=== PATIENT | female | born 1945 | race Caucasian/White ===

== ENCOUNTER 2017-12-16 10:26 | Inpatient (IN) | payer BC, OTHER ==
--- NOTE | 2017-12-16 10:37 | PDOC ---
Attending Attestation - Medical Decision Making 12/16/17 12:[address] Emmanuel. Case discussed with Dr. Emmanuel. <Malka Cunha - Last Filed: 12/16/17 12:33> - Resident Resident Name: Josefina Bustillos - HPI HPI: 12/16/17 11:44 Pt presents to the ED complaining of L sided facial droop and slurred speech that began three days ago. History of fall that began concurrently with these symptoms--unclear which came first. On exam, patient has clear L sided droop that involves her lower face only and slurred speech. CVA vs subdural vs other space occupying lesion. Will check stat CT head, labs and EKG and admit to medicine unless patient has intracranial bleed. - Physicial Exam PE: 12/18/17 09:18 Agree with resident exam. PAtient is alert and oriented and in no acute distress but has slurred speech and L sided facial droop. Otherwise neurologically intact. - Medical Decision Making 12/18/17 10:02 Pt presents to the ED complaining of l sided facial droop and slurred speech that started three days ago. Also reports fall. Concern for CVA, less likely intracranial bleed or other intracranial lesions. Labs and Ct head are negative. Will admit to medicine for CVA work up. <Alicia Lovett - Last Filed: 12/18/17 10:13>
[2017-12-16 10:54] LABS: BASO % 1.1 % (0-2.0); EOS % 1.8 % (0-4.5); HEMOGLOBIN 15.7 GM/dL (10.7-15.3); LYMPH % 22.1 % (8-40); MCH 30.4 pg (25.7-33.7); MCHC 32.7 g/dl (32.0-36.0); MEAN PLT VOLUME 7.5 fl (7.5-11.1); MONO % 7.6 % (3.8-10.2); NEUT % 67.4 % (42.8-82.8); PLATELET COUNT 285 K/MM3 (134-434); RBC 5.16 M/mm3 (3.60-5.2); RDW 13.6 % (11.6-15.6); WHITE BLOOD COUNT 7.7 K/mm3 (4.0-10.0)
[2017-12-16 11:10] LABS: INR 1.05 (0.83-1.09); PROTHROMBIN TIME (PATIENT) 12.4 SEC (9.7-13.0)
--- NOTE | 2017-12-16 11:18 | PDOC ---
History of Present Illness - General Chief Complaint: CVA/TIA Stated Complaint: FALL Time Seen by Provider: 12/16/17 10:35 - History of Present Illness Initial Comments: 12/16/17 11:18 72 year old history of HTN and HLD fell on Tuesday on all 4s after getting off bed and going to couch. per notes patient slurring words and with R sided facial droop pt standing after shower L knee buckled under her, denies muscle weakness did not fall, no head trauma held onto the wall called alert necklace for emergency patient takes ASA. does not take other anti-coagulants. Patient admits to some SOB, no chest pain, no abdominal pain. no other extremity injury NIH Stroke Scale - Last Known Well Date/Time & Onset Date Last Known Well: 12/13/17 Time Last Known Well: 06:00 - Initial Evaluation Level of consciousness: Alert Ask patient the month and their age: Answers both correctly Ask patient to open & close eyes; make fist and let go: Obeys both correctly Best gaze (horizontal eye movement): Normal Visual field testing: No visual field loss Facial paresis (Show teeth/raise eyebrows/close eyes tight): Minor paralysis ( flattened nasolabial fold, asymmetry on smiling) Motor Function: Left Arm: Normal Motor Function: Right Arm: Normal (extends arm 90 (or 45) degrees for 10 seconds without drift Motor Function: Left Leg: Normal (extends leg 30 degrees for 5 seconds without drift) Motor Function: Right Leg: Normal (extends leg 30 degrees for 5 seconds without drift) Limb Ataxia: No ataxia Best language (Describe picture, name items, read sentences): No Aphasia Dysarthria (read several words): Mild to moderate slurring of words Extinction and Inattention: No abnormality Past History - Past Medical History Allergies/Adverse Reactions: Allergies Allergy/AdvReac Type Severity Reaction Status Date / Time No Known Allergies Allergy Verified 12/16/17 10:31 Home Medications: Ambulatory Orders Aspirin [Aspirin EC] 81 mg PO DAILY 12/16/17 Atenolol [Tenormin -] 50 mg PO HS 12/16/17 Ibuprofen [Motrin -] 600 mg PO TID PRN 12/16/17 Irbesartan 300 mg PO DAILY 12/16/17 Loratadine 10 mg PO HS 12/16/17 Pravastatin Sodium 20 mg PO HS 12/16/17 Cancer: Yes (rt breast) COPD: No HTN: Yes Hypercholesterolemia: Yes - Surgical History Appendectomy: Yes - Suicide/Smoking/Psychosocial Hx Smoking History: Never smoked Information on smoking cessation initiated: No Hx Alcohol Use: No Drug/Substance Use Hx: No Substance Use Type: None *Physical Exam - Vital Signs Last Vital Signs Temp Pulse Resp BP Pulse Ox 98.0 F 68 18 159/85 96 12/16/17 10:31 12/16/17 10:31 12/16/17 10:31 12/16/17 10:31 12/16/17 10:31 - Physical Exam Comments: 12/16/17 11:28 AxO3 slurring some words L sided facial droop notes no asymmetry on eyebrow raise PERRLA, EOMI, no nystagmus CN5 intact L knee bruising and abrasian no anterior ot posterior drawer findigns no medial or lateral ligament laxity FROM of all extremities ED Treatment Course - LABORATORY CBC & Chemistry Diagram: 12/16/17 10:40 12/16/17 10:40 - ADDITIONAL ORDERS Additional order review: Laboratory Results 12/16/17 12/16/17 10:40 10:40 PT with INR 12.40 INR 1.05 Blood Type Cancelled Antibody Screen Cancelled 12/16/17 10:40 RBC 5.16 MCV 93.0 MCHC 32.7 RDW 13.6 MPV 7.5 Neutrophils % 67.4 Lymphocytes % 22.1 Monocytes % 7.6 Eosinophils % 1.8 Basophils % 1.1 - RADIOLOGY Radiology Studies Ordered: Category Date Time Status HEAD CT (STROKE) [CT] Stat CT Scan 12/16/17 10:39 Completed CXRPORT [CHEST X-RAY PORTABLE*] [RAD] Stat Radiology 12/16/17 10:55 Ordered Medical Decision Making - Medical Decision Making 12/16/17 11:47 CT: unremarkable w/o bleed. *DC/Admit/Observation/Transfer Diagnosis at time of Disposition: CVA (cerebral vascular accident) - Discharge Dispostion Condition at time of disposition: Stable Decision to Admit order: Yes - Referrals - Patient Instructions - Post Discharge Activity
[2017-12-16 11:33] LABS: ALBUMIN 3.6 g/dl (3.4-5.0); ALK PHOS 95 U/L (45-117); ANION GAP 8 MMOL/L (8-16); BILIRUBIN,TOTAL 1.1 mg/dL (0.2-1); BLOOD UREA NITROGEN 10 mg/dL (7-18); CHLORIDE 105 mmol/L (98-107); CHOLESTEROL 177 mg/dL (50-200); CO2 27 mmol/L (21-32); CREATININE 0.6 mg/dL (0.55-1.3); GLUCOSE,RANDOM 98 mg/dL (74-106); HDL CHOLESTEROL 45 mg/dL (40-60); POTASSIUM 4.6 mmol/L (3.5-5.1); SGOT/AST 49 U/L (15-37); SGPT/ALT 42 U/L (13-61); SODIUM 139 mmol/L (136-145); TOT PROT 7.4 g/dl (6.4-8.2); TRIGLYCERIDES 176 mg/dL (0-150)
[2017-12-16] MEDS: SODIUM CHLORIDE 1,000 ML IV SCH (11:45)
[2017-12-16 11:56] LABS: URINE APPEARANCE CLEAR; URINE BILIRUBIN NEGATIVE (<2.0 mg/dL); URINE COLOR STRAW; URINE GLUCOSE (UA) NEGATIVE (NEGATIVE); URINE KETONE NEGATIVE (NEGATIVE); URINE LEUK ESTERASE NEGATIVE (NEGATIVE); URINE NITRITE NEGATIVE (NEGATIVE); URINE PROTEIN NEGATIVE (NEGATIVE); URINE UROBILINOGEN NEGATIVE mg/dL (0.2-1.0)
[2017-12-16] MEDS ORDERED: ATORVASTATIN CA 80 MG TABLET (FP) PO ONE (12:37)
--- NOTE | 2017-12-16 12:37 | HP ---
Admitting History and Physical - Admission Chief Complaint: Left sided weakness with slurred speech History of Present Illness: 72 yrs old F with H/O Obesity, HTN, Dyslipedenmia, on Cruise trip to [place] , visiting [place] as a part of travelling arrnagement, present to ED with Left sided weakness , slurred speech and facial asymmetry, patient say on Tuesday , she felt weak on Left knee and fell down since Tuesday feels Left sided weakness some slurred speech and dribling of water from Left angle of mouth but able to ambulate, today morning she noticed worsening weakness of Left LE partial due to Left knee pain and swelling after fall came to Ed for evaluation , patient denies any haed trauma, double vision, haed ache, chest pain, Plapitation, abadominal pain, back pain or Neck pain, no cage in mental status in the Ed CT head shows no acute changes. History Source: Patient - Past Medical History Cardiovascular: Yes: HTN, Hyperlipdemia Gastrointestinal: Yes: Cancer (Ca Breasrt s/p resection) ...: No Musculoskeletal: Yes: Osteoarthritis - Past Surgical History Additional Past Surgical History: Rt Breast Surgery and Rt rotator cuff with screw - Smoking History Smoking history: Never smoked - Alcohol/Substance Use Hx Alcohol Use: No - Social History Usual Living Arrangement: Yes: With Spouse History of Recent Travel: Yes (On Cruise) Home Medications - Allergies Allergies/Adverse Reactions: Allergies Allergy/AdvReac Type Severity Reaction Status Date / Time No Known Allergies Allergy Verified 12/16/17 10:31 - Home Medications Home Medications: Ambulatory Orders Aspirin [Aspirin EC] 81 mg PO DAILY 12/16/17 Atenolol [Tenormin -] 50 mg PO HS 12/16/17 Ibuprofen [Motrin -] 600 mg PO TID PRN 12/16/17 Irbesartan 300 mg PO DAILY 12/16/17 Loratadine 10 mg PO HS 12/16/17 Pravastatin Sodium 20 mg PO HS 12/16/17 Family Disease History - Family Disease History Family Disease History: Heart Disease: Father (at 54) Review of Systems - Review of Systems Constitutional: denies: Chills, Diaphoresis, Fever, Lethargy Eyes: denies: Blind Spots, Blurred Vision, Double Vision, Photophobia HENT: reports: Difficult Swallowing Neck: denies: Decreased ROM, Lumps, Pain on Movement Cardiovascular: denies: Chest Pain, Edema, Palpitations Respiratory: denies: Cough, Exercise Intolerance Gastrointestinal: denies: Abdominal Pain, Bloating Genitourinary: denies: Burning, Discharge, Dysuria Musculoskeletal: reports: Back Pain (Left Knee Hematoma) Endocrine: denies: Excessive Sweating, Flushing Hematology/Lymphatic: denies: Easily Bruised, Excessive Bleeding Pain Intensity: 4 Physical Examination Vital Signs: Vital Signs Temperature 98.1 F 12/16/17 10:39 Pulse Rate 60 12/16/17 10:39 Respiratory Rate 18 12/16/17 10:39 Blood Pressure 152/74 12/16/17 10:39 O2 Sat by Pulse Oximetry (%) 97 12/16/17 11:18 Elderly F C/O Left Knee Pian HEENT: Left Facial Droop, EOMI NECK: No JVD, No Bruit, CHEST: CTA B/L CVS; S1S2 R no m/g/r ABD: Obese non tender Bs + EXT: Left Knee Hematoma, swelling and Tenderness SLED MAKER: Aox3 Speech Slurred Crnial N; Left Facial ? Sensory; Intact Motor; Rt $+ Left $ Reflexes in determintae Cerebellar not tested. Labs: CBC, BMP 12/16/17 10:40 12/16/17 10:40 CBC,CMP WBC 7.7 K/mm3 (4.0-10.0) 12/16/17 10:40 RBC 5.16 M/mm3 (3.60-5.2) 12/16/17 10:40 Hgb 15.7 GM/dL (10.7-15.3) H 12/16/17 10:40 Hct 48.0 % (32.4-45.2) H 12/16/17 10:40 MCV 93.0 fl (80-96) 12/16/17 10:40 MCH 30.4 pg (25.7-33.7) 12/16/17 10:40 MCHC 32.7 g/dl (32.0-36.0) 12/16/17 10:40 RDW 13.6 % (11.6-15.6) 12/16/17 10:40 Plt Count 285 K/MM3 (134-434) 12/16/17 10:40 MPV 7.5 fl (7.5-11.1) 12/16/17 10:40 Absolute Neuts (auto) 5.2 K/mm3 (1.5-8.0) 12/16/17 10:40 Neutrophils % 67.4 % (42.8-82.8) 12/16/17 10:40 Lymphocytes % 22.1 % (8-40) 12/16/17 10:40 Monocytes % 7.6 % (3.8-10.2) 12/16/17 10:40 Eosinophils % 1.8 % (0-4.5) 12/16/17 10:40 Basophils % 1.1 % (0-2.0) 12/16/17 10:40 Nucleated RBC % 0 % (0-0) 12/16/17 10:40 Sodium 139 mmol/L (136-145) 12/16/17 10:40 Potassium 4.6 mmol/L (3.5-5.1) 12/16/17 10:40 Chloride 105 mmol/L (98-107) 12/16/17 10:40 Carbon Dioxide 27 mmol/L (21-32) 12/16/17 10:40 Anion Gap 8 MMOL/L (8-16) 12/16/17 10:40 BUN 10 mg/dL (7-18) 12/16/17 10:40 Creatinine 0.6 mg/dL (0.55-1.3) 12/16/17 10:40 Creat Clearance w eGFR > 60 (>60) 12/16/17 10:40 Random Glucose 98 mg/dL (74-106) 12/16/17 10:40 Calcium 9.0 mg/dL (8.5-10.1) 12/16/17 10:40 Total Bilirubin 1.1 mg/dL (0.2-1) H 12/16/17 10:40 AST 49 U/L (15-37) H 12/16/17 10:40 ALT 42 U/L (13-61) 12/16/17 10:40 Alkaline Phosphatase 95 U/L (45-117) 12/16/17 10:40 Creatine Kinase 148 IU/L (26-192) 12/16/17 10:40 Troponin I < 0.02 ng/ml (0.00-0.05) 12/16/17 10:40 Total Protein 7.4 g/dl (6.4-8.2) 12/16/17 10:40 Albumin 3.6 g/dl (3.4-5.0) 12/16/17 10:40 Triglycerides 176 mg/dL (0-150) H 12/16/17 10:40 Cholesterol 177 mg/dL (50-200) 12/16/17 10:40 Total LDL Cholesterol 123 mg/dL (5-100) H 12/16/17 10:40 HDL Cholesterol 45 mg/dL (40-60) 12/16/17 10:40 Imaging - Results Chest X-ray: Report Reviewed (Normal) X-ray: Report Reviewed (Left Knee no fracture) Cat Scan: Report Reviewed (No acute chnages) EKG: Report Reviewed ([address] chnages) Problem List - Problems (1) CVA (cerebral vascular accident) Assessment/Plan: Left sided weakness with facial and sppech involvement, 3 days old not a candidate for TPA,Stroke w/u , Telemonitoring, ECHO, Neurology consult , Neuro check, , MRI MRA Neck, Carotid Doppler , speech and swallow and PT evaluation, LDL 124 add Lipitor 80 mg once cont ASA switch to Lipitor 40 mg asha, Optimize BP control. Code(s): I63.9 - CEREBRAL INFARCTION, UNSPECIFIED (2) HTN (hypertension) Assessment/Plan: Cont all home meds 3 days old lesion no indication for permissive HTN Code(s): I10 - ESSENTIAL (PRIMARY) HYPERTENSION (3) Dyslipidemia (high LDL; low HDL) Assessment/Plan: Lipitor 80 stat switch to Lipitor 40 mg on [place] Code(s): E78.5 - HYPERLIPIDEMIA, UNSPECIFIED (4) Obesity (BMI 30-39.9) Assessment/Plan: Nutrition consult Code(s): E66.9 - OBESITY, UNSPECIFIED (5) Left knee injury Assessment/Plan: No fracture cold compresses pain control. Code(s): S89.92XA - UNSPECIFIED INJURY OF LEFT LOWER LEG, INITIAL ENCOUNTER
--- NOTE | 2017-12-16 13:37 | CONSULT ---
Admitting History and Physical - Primary Care Physician PCP: Larry Frausto - Admission History of Present Illness: Pt presents to the ED complaining of L sided facial droop and slurred speech that began three [place] ago [place] cruise [place].Pt reports coughing while drinking, CT head (-) acute infarct History Source: Patient, Medical Record - Smoking History Smoking history: Never smoked - Alcohol/Substance Use Hx Alcohol Use: No History - Admission Reason For Visit: FALL - Diagnostics X-ray: Report Reviewed CT Scan: Report Reviewed MRI: Pending - General Mental Status: Alert and Oriented, Awake and Alert, Able to Follow Commands Attention: Intact Ability to Follow Directions: Good Head/Neck Control: Good - Hearing Hearing: Functional Speech Evaluation - Communication Primary Language: MAORI Communication: Yes: Dysarthria Oral Expression Ability: Yes: Mild Impairment - Speech Production Dysarthria: Yes: Flaccid Able to Make Needs Known: Yes: Mildly Impaired Intelligibility: Yes: Mildly Impaired - Speech Characteristics Voice Loudness: Normal, Mildly Soft/Quiet Voice Pitch: Yes: Normal Speech Clarity: < 100% Nasal Resonance: Normal Articulation: Yes: Imprecise Voice, Other Observations: Yes: Progressively Weak Voice - Language/Auditory Comprehension Follows: Yes: 1 Stage Simple Commands - Language/Verbal Expression Able to Respond to Simple Queries: Yes: WNL Able to Communicate Wants and Needs: Yes: WNL Functional Communication Status: Yes: WNL Attention: Yes: Intact - Swallow Evaluation/Bedside Assessment Current Nutritional Intake: NPO (Failed Dysphagia screen) Oral Secretions: Yes: WFL Facial Symmetry at Rest: Facial Droop Left Facial Symmetry on Retraction: Facial Droop Left Sensation: Reduced Left Against Resistance Opening: Normal Against Resistance Closing: Normal Pucker Lips: Droops Left Smile: Droops Left Lingual Movement: Deviates Left Lingual Movement Strgth Against Opposition: Reduced Laryngeal Movement: Labored,delay initiation Bolus Size: WFL Labial Seal: Impaired Left Chewing: Impaired Oral Prep Time: Increased A-P Transit: WFL Timing of Swallow: Delayed Coughing/Throat Clear: Yes (thin) Recommendations - Speech Evaluation, Impression/Plan Impression: Dysarthria/Dysphagia/Left facial weakness, tongue deviates to left. - Disposition Discharge to: Rehabilitation Center - Dysphagia Impressions/Plan Swallowing Skills: Impaired Dysphagia Impressions: Mild Impairment *Silent aspiration: cannot be R/O at bedside Dysphagia Treatment Plan: Small Bites, Chin Tuck/Down, Trial Feedings, Facilitative Feeding, Safe Rate, 1/2 tsp. at a time, Elevate HOB during feed Recommendations: Modified Barium Swallow (if cough, congestion,throat clear) - Recommendations Diet Consistency: Dysphagia Whole (chopped meat.) Medication Administration: Crushed with applesauce Liquids: [place] Thick
--- NOTE | 2017-12-16 14:02 | CON.NEURO ---
Consult Consult Specialty:: Jasbir Referred by:: ER - History of Present Illness History of Present Illness: 72-year-old right-handed female patient with present medical history significant for coronary artery disease, osteoarthritis, hypertension, allergy, increased cholesterol presents today to the emergency room [facility] with a chief complaint of slurred speech and numbness for 3 days. Stroke protocol was initiated although the patient was not a candidate for TPA due to last well-known over 72 hours. In the emergency room patient with no complaint of headache or blurry vision or double vision or chest pain. Patient was stabilized. patient was evaluated in the emergency room patient according third started on Tuesday night when she started feeling left arm and leg numbness with facial droop with mild slurring of speech no chest pain or palpitation. I interviewed the patient in the emergency room she was stable with no cardiac arrhythmia CAT scan of the head revealed no evidence of acute pathology surprisingly. NIH stroke scale was noted patient was not a candidate for thrombolysis - History Source History Provided By: Patient Limitations to Obtaining History: No Limitations - Alcohol/Substance Use Hx Alcohol Use: No - Smoking History Smoking history: Never smoked Home Medications - Allergies Allergies/Adverse Reactions: Allergies Allergy/AdvReac Type Severity Reaction Status Date / Time No Known Allergies Allergy Verified 12/16/17 10:31 - Home Medications Home Medications: Ambulatory Orders Aspirin [Aspirin EC] 81 mg PO DAILY 12/16/17 Atenolol [Tenormin -] 50 mg PO HS 12/16/17 Ibuprofen [Motrin -] 600 mg PO TID PRN 12/16/17 Irbesartan 300 mg PO DAILY 12/16/17 Loratadine 10 mg PO HS 12/16/17 Pravastatin Sodium 20 mg PO HS 12/16/17 Family Disease History - Family Disease History Family History: Unable to Obtain Review of Systems - Review of Systems Constitutional: reports: No Symptoms Eyes: reports: No Symptoms Physical Exam-Neuro Vital Signs: Vital Signs Temperature 98.1 F 12/16/17 10:39 Pulse Rate 60 12/16/17 10:39 Respiratory Rate 18 12/16/17 10:39 Blood Pressure 152/74 12/16/17 10:39 O2 Sat by Pulse Oximetry (%) 97 12/16/17 11:18 Constitutional: Yes: Well Nourished Neck: Yes: WNL Cardiovascular: Yes: WNL Labs: CBC, BMP 10/12/18 10:40 12/16/17 10:40 INR, PTT INR 1.05 (0.83-1.09) 12/16/17 10:40 - Neuro Exam Level Of Consciousness: Yes: Oriented to Person, Oriented to Place, Oriented to Time Eyes: Yes: PERRLA Speech: WNL Dominant Hand: Right Cranial Nerves II-XII Intact: No (left facial droop central) Gag: Present DTR's: 1+ Left Bicep, 1+ Right Bicep, 1+ Left Brachioradialis, 1+ Right Brachioradialis Response to light touch: Abnormal Response to pain prick: Abnormal Response to temperature: Abnormal Motor Strength: 2/5: Left Arm, 3/5: Right Arm, Left Leg, Right Leg Gait: Deferred NIH Stroke Scale - Last Known Well Date/Time & Onset Date Last Known Well: 12/12/17 Time Last Known Well: 00:00 - Initial Evaluation Level of consciousness: Alert Ask patient the month and their age: Answers both correctly Ask patient to open & close eyes; make fist and let go: Obeys both correctly Best gaze (horizontal eye movement): Normal Visual field testing: No visual field loss Facial paresis (Show teeth/raise eyebrows/close eyes tight): Partial paralysis ( total or near paralysis of lower face) Motor Function: Left Arm: Drift Motor Function: Right Arm: Normal (extends arm 90 (or 45) degrees for 10 seconds without drift Motor Function: Left Leg: Some effort against gravity Motor Function: Right Leg: Normal (extends leg 30 degrees for 5 seconds without drift) Limb Ataxia: No ataxia Sensory(Use pinprick test arms,legs,trunk,face/side to side): Mild to moderate decrease in sensation Best language (Describe picture, name items, read sentences): No Aphasia Dysarthria (read several words): Mild to moderate slurring of words Extinction and Inattention: No abnormality - Total Score NIH Stroke Scale Score: 7 Imaging - Results Cat Scan: Image Reviewed Problem List - Problems (1) CVA (cerebral vascular accident) Assessment/Plan: 72-year-old woman with multiple medical problem presents with over 3 day history of left face arm and leg weakness. Gross neurological examination with evidence of left hemiparesis with mild sensory loss with mild dysarthria. NIH stroke scale is 7. Neurological differential diagnoses rule out right MCA stroke. 1. Neurochecks every 2 hours. 2. X-ray of the right shoulder. 3. Stop the aspirin. 4. Aggrenox twice daily. 5. Weight loss was advised. 6. Stroke education. 7. Tight blood pressure control. 8. Admit to monitored setting. 9. MRI of the brain with no contrast. 11. SCDs. 10. Physical therapy. 12. Speech and swallow evaluation. Patient will need to go to acute rehabilitation. Case was discussed with the . Estimated length of stay 3 days. Chances for good recovery is good. Thank you very much for referring patients patient for neurological consultation. Code(s): I63.9 - CEREBRAL INFARCTION, UNSPECIFIED
[2017-12-16] MEDS ORDERED: IBUPROFEN 600 MG TABLET (FP) PO PRN (14:47)
[2017-12-16] MEDS ORDERED: ATORVASTATIN CA 80 MG TABLET (FP) ONE (15:20)
--- NOTE | 2017-12-16 15:47 | ECHO ---
Name: CALVIN FARIAS Exam:Adult Echocardiogram Study Date: 12/16/2017 02:31 PM Age: 72 yrs Reason For Study: SYNCOPE Height: 65 in Weight: 220 lb BSA: 2.1 m2 MMode/2D Measurements & Calculations IVSd: 0.97 cm Ao root diam: 2.8 cm LVIDd: 3.7 cm LA dimension: 3.9 cm LVIDs: 2.9 cm LVPWd: 1.3 cm EDV(Teich): 59.5 ml LVOT diam: 1.9 cm ESV(Teich): 30.9 ml RV S Hardik: 14.9 cm/sec Doppler Measurements & Calculations MV E max hardik: 71.3 cm/sec MV A max hardik: 100.4 cm/sec MV dec slope: 137.8 cm/sec2 MV E/A: 0.71 MV dec time: 0.16 sec Med Peak E' Hardik: 10.1 cm/sec Med E/e': 7.0 Lat Peak E' Hardik: 6.7 cm/sec Lat E/e': 10.6 Left Ventricle Left ventricular systolic function is grossly normal. The transmitral spectral Doppler flow pattern i s suggestive of impaired LV relaxation. Right Ventricle The right ventricle is normal in size and function. Atria The left atrium is mildly dilated. Mitral Valve There is mild mitral annular calcification. There is no mitral valve stenosis. There is trace to mild mitral regurgitation. Tricuspid Valve The tricuspid valve is normal in structure and function. Aortic Valve The aortic valve opens well. No hemodynamically significant valvular aortic stenosis. No aortic regur gitation is present. Pulmonic Valve The pulmonic valve is not well seen, but is grossly normal. There is no pulmonic valvular stenosis. Great Vessels The aortic root is normal size. Pericardium/Pleura There is pericardial thickening and/or a small pericardial effusion. Interpretation Summary Left ventricular systolic function is grossly normal. The right ventricle is normal in size and function. The left atrium is mildly dilated. There is mild mitral annular calcification. There is trace to mild mitral regurgitation. The transmitral spectral Doppler flow pattern is suggestive of impaired LV relaxation. The aortic root is normal size. There is pericardial thickening and/or a small pericardial effusion. MD Nikita Briceño 12/16/2017 03:46 PM
[2017-12-16] MEDS ORDERED: ASPIRIN/DIPYRIDAMOLE 25 MG/200 MG CAPSULE (FP) ONE (22:18)
[2017-12-16] MEDS ORDERED: ATENOLOL 25 MG TABLET (FP) ONE (22:18)
[2017-12-16] MEDS ORDERED: LORATADINE 10 MG TABLET ONE (22:19)
[2017-12-16] MEDS: ASPIRIN/DIPYRIDAMOLE 25 MG/200 MG CAPSULE (FP) PO SCH (22:32)
[2017-12-16] MEDS: LORATADINE 10 MG TABLET PO SCH (22:32)
[2017-12-16] MEDS: ATENOLOL 50 MG TABLET (FP) PO SCH (22:32)
[2017-12-17 07:05] LABS: BASO % 0.5 % (0-2.0); EOS % 1.4 % (0-4.5); HEMATOCRIT 44.2 % (32.4-45.2); HEMOGLOBIN 14.8 GM/dL (10.7-15.3); LYMPH % 16.7 % (8-40); MCH 30.6 pg (25.7-33.7); MCHC 33.5 g/dl (32.0-36.0); MEAN CELL VOLUME 91.5 fl (80-96); MEAN PLT VOLUME 7.8 fl (7.5-11.1); MONO % 8.1 % (3.8-10.2); NEUT % 73.3 % (42.8-82.8); PLATELET COUNT 271 K/MM3 (134-434); RBC 4.83 M/mm3 (3.60-5.2); RDW 13.5 % (11.6-15.6); WHITE BLOOD COUNT 9.7 K/mm3 (4.0-10.0)
--- NOTE | 2017-12-17 08:30 | PN ---
Progress Note, Physician Chief Complaint: No new complaints, evaluated by Neurology, PT and speech and swallow - Current Medication List Current Medications: Active Medications Active Medications Atenolol (Tenormin -) 50 mg PO HS [facility] Last Admin: 12/16/17 22:32 Dose: 50 mg Atorvastatin Calcium (Lipitor -) 40 mg PO HS [facility] Dipyridamole/Aspirin (Aggrenox -) 1 combo PO BID [facility] Last Admin: 12/17/17 09:51 Dose: 1 combo Sodium Chloride (Normal Saline -) 1,000 mls @ 42 mls/hr IV ASDIR [facility] Last Admin: 12/16/17 11:45 Dose: 42 mls/hr Ibuprofen (Motrin -) 600 mg PO TID PRN PRN Reason: PAIN Loratadine (Claritin -) 10 mg PO HS [facility] Last Admin: 12/16/17 22:32 Dose: 10 mg Losartan Potassium (Cozaar -) 100 mg PO DAILY [facility] Last Admin: 12/17/17 09:51 Dose: 100 mg - Objective Vital Signs: Vital Signs Temperature 97.8 F 12/17/17 03:52 Pulse Rate 68 12/17/17 03:52 Respiratory Rate 20 12/17/17 03:52 Blood Pressure 142/74 12/17/17 03:52 O2 Sat by Pulse Oximetry (%) 100 12/16/17 23:09 Elderly F C/O Left Knee Pian HEENT: Left Facial Droop, EOMI NECK: No JVD, No Bruit, CHEST: CTA B/L CVS; S1S2 R no m/g/r ABD: Obese non tender Bs + EXT: Left Knee Hematoma, swelling and Tenderness FINAL OPERATIONS TECHNICIAN: Aox3 Speech Slurred Crnial N; Left Facial ? Sensory; Intact Motor; Rt $+ Left $ Reflexes in determintae Cerebellar not tested. Labs: CBC, BMP 12/17/17 06:20 INR, PTT INR 1.05 (0.83-1.09) 12/16/17 10:40 Problem List - Problems (1) CVA (cerebral vascular accident) Assessment/Plan: Left sided weakness with facial and sppech involvement, 3 days , MRI shows Rt M2 MCA infarct, cont aggrenox, lipitor 40 mg, BP control, PT and speech and swallow recommendations. f/u neurology recommendations. Code(s): I63.9 - CEREBRAL INFARCTION, UNSPECIFIED (2) HTN (hypertension) Assessment/Plan: Cont all home meds 3 days old lesion no indication for permissive HTN Code(s): I10 - ESSENTIAL (PRIMARY) HYPERTENSION (3) Dyslipidemia (high LDL; low HDL) Assessment/Plan: Lipitor 40 mg on [place] Code(s): E78.5 - HYPERLIPIDEMIA, UNSPECIFIED (4) Obesity (BMI 30-39.9) Assessment/Plan: Nutrition consult Code(s): E66.9 - OBESITY, UNSPECIFIED (5) Left knee injury Assessment/Plan: No fracture cold compresses pain control. Code(s): S89.92XA - UNSPECIFIED INJURY OF LEFT LOWER LEG, INITIAL ENCOUNTER
[2017-12-17 08:59] LABS: ALBUMIN 3.3 g/dl (3.4-5.0); ALK PHOS 92 U/L (45-117); ANION GAP 10 MMOL/L (8-16); BILIRUBIN,TOTAL 1.3 mg/dL (0.2-1); BLOOD UREA NITROGEN 11 mg/dL (7-18); CALCIUM 8.2 mg/dL (8.5-10.1); CHLORIDE 106 mmol/L (98-107); CO2 27 mmol/L (21-32); CREATININE 0.5 mg/dL (0.55-1.3); GLUCOSE,RANDOM 99 mg/dL (74-106); POTASSIUM 3.5 mmol/L (3.5-5.1); SGOT/AST 27 U/L (15-37); SGPT/ALT 35 U/L (13-61); SODIUM 142 mmol/L (136-145); TOT PROT 6.4 g/dl (6.4-8.2)
[2017-12-17] MEDS: LOSARTAN POTASSIUM 50 MG TABLET (FP) PO SCH (09:51)
[2017-12-17] MEDS: ASPIRIN/DIPYRIDAMOLE 25 MG/200 MG CAPSULE (FP) PO SCH ×2 (09:51→21:47)
[2017-12-17] MEDS ORDERED: ASPIRIN COATED 81 MG TABLET.EC PO SCH (10:00)
--- NOTE | 2017-12-17 10:31 | EKG ---
Test Reason : Blood Pressure : / mmHG Vent. Rate : 064 BPM Atrial Rate : 064 BPM P-R Int : 162 ms QRS Dur : 086 ms QT Int : 436 ms P-R-T Axes : 000 051 000 degrees QTc Int : 449 ms NORMAL SINUS RHYTHM NONSPECIFIC ST ABNORMALITY ABNORMAL ECG NO PREVIOUS ECGS AVAILABLE Confirmed by MINO DE JESUS MD ([id number]) on 12/17/2017 10:31:07 AM Referred By: Confirmed By:MINO DE JESUS MD
--- NOTE | 2017-12-17 11:33 | PN ---
Progress Note, Physician History of Present Illness: events noted Chart reviewed Alert awake Seen on Tele MRI confirmed M2 Right MCA CVA hemodynamically stable seen on Thalomid 3 with the . No report of any cardiac arrhythmia. - Current Medication List Current Medications: Active Medications Atenolol (Tenormin -) 50 mg PO HS [facility] Last Admin: 12/16/17 22:32 Dose: 50 mg Dipyridamole/Aspirin (Aggrenox -) 1 combo PO BID [facility] Last Admin: 12/17/17 09:51 Dose: 1 combo Sodium Chloride (Normal Saline -) 1,000 mls @ 42 mls/hr IV ASDIR [facility] Last Admin: 12/16/17 11:45 Dose: 42 mls/hr Ibuprofen (Motrin -) 600 mg PO TID PRN PRN Reason: PAIN Loratadine (Claritin -) 10 mg PO HS [facility] Last Admin: 12/16/17 22:32 Dose: 10 mg Losartan Potassium (Cozaar -) 100 mg PO DAILY [facility] Last Admin: 12/17/17 09:51 Dose: 100 mg - Objective Vital Signs: Vital Signs Temperature 98.1 F 12/17/17 08:51 Pulse Rate 74 12/17/17 08:51 Respiratory Rate 16 12/17/17 08:52 Blood Pressure 143/71 12/17/17 08:51 O2 Sat by Pulse Oximetry (%) 95 12/17/17 08:52 Constitutional: Yes: Well Nourished Eyes: Yes: WNL Neurological: Yes: Alert, Oriented, Babinski positive, Cran Nerves II-XII Intact , Loss of Sensation ...Motor Strength: LUE (4), LLE (3) Labs: CBC, BMP 12/17/17 06:20 12/17/17 06:20 INR, PTT INR 1.05 (0.83-1.09) 12/16/17 10:40 Problem List - Problems (1) CVA (cerebral vascular accident) Assessment/Plan: 1. Aggrenox 2. statin 3. Acute Rehab 4. weight loss 5. stroke education 6. change diet to pure Code(s): I63.9 - CEREBRAL INFARCTION, UNSPECIFIED
[2017-12-17] MEDS: ALPRAZolam 0.25 MG TABLET PO PRN ×2 (12:46→21:48)
[2017-12-17] MEDS: LORATADINE 10 MG TABLET PO SCH (21:47)
[2017-12-17] MEDS: ATORVASTATIN CA 40 MG TABLET (FP) PO SCH (21:47)
[2017-12-17] MEDS: ATENOLOL 50 MG TABLET (FP) PO SCH (21:47)
[2017-12-17] MEDS: SODIUM CHLORIDE 1,000 ML IV SCH (21:48)
[2017-12-18] MEDS ORDERED: ONDANSETRON 4 MG/2 ML VIAL IVPUSH ONE (02:02)
[2017-12-18 07:21] LABS: BASO % 0.5 % (0-2.0); EOS % 1.5 % (0-4.5); HEMATOCRIT 43.7 % (32.4-45.2); HEMOGLOBIN 14.7 GM/dL (10.7-15.3); LYMPH % 22.8 % (8-40); MCHC 33.6 g/dl (32.0-36.0); MEAN CELL VOLUME 92.1 fl (80-96); MEAN PLT VOLUME 7.7 fl (7.5-11.1); MONO % 7.5 % (3.8-10.2); NEUT % 67.7 % (42.8-82.8); PLATELET COUNT 256 K/MM3 (134-434); RBC 4.75 M/mm3 (3.60-5.2); RDW 13.6 % (11.6-15.6); WHITE BLOOD COUNT 9.4 K/mm3 (4.0-10.0)
[2017-12-18 08:04] LABS: ANION GAP 7 MMOL/L (8-16); BLOOD UREA NITROGEN 11 mg/dL (7-18); CALCIUM 8.5 mg/dL (8.5-10.1); CHLORIDE 107 mmol/L (98-107); CO2 28 mmol/L (21-32); CREATININE 0.4 mg/dL (0.55-1.3); GLUCOSE,RANDOM 102 mg/dL (74-106); POTASSIUM 3.6 mmol/L (3.5-5.1); SODIUM 142 mmol/L (136-145)
[2017-12-18] MEDS: LOSARTAN POTASSIUM 50 MG TABLET (FP) PO SCH (09:55)
[2017-12-18] MEDS: ASPIRIN/DIPYRIDAMOLE 25 MG/200 MG CAPSULE (FP) PO SCH ×2 (09:55→21:32)
--- NOTE | 2017-12-18 10:20 | PN ---
Progress Note, Physician Chief Complaint: No new complaints, evaluated by Neurology, PT and speech and swallow - Current Medication List Current Medications: Active Medications Alprazolam (Xanax -) 0.5 mg PO Q8H PRN PRN Reason: ANXIETY Last Admin: 12/17/17 21:48 Dose: 0.5 mg Atenolol (Tenormin -) 50 mg PO HS [facility] Last Admin: 12/17/17 21:47 Dose: 50 mg Atorvastatin Calcium (Lipitor -) 40 mg PO HS [facility] Last Admin: 12/17/17 21:47 Dose: 40 mg Dipyridamole/Aspirin (Aggrenox -) 1 combo PO BID [facility] Last Admin: 12/18/17 09:55 Dose: 1 combo Sodium Chloride (Normal Saline -) 1,000 mls @ 42 mls/hr IV ASDIR [facility] Last Admin: 12/17/17 21:48 Dose: 42 mls/hr Ibuprofen (Motrin -) 600 mg PO TID PRN PRN Reason: PAIN Last Admin: 12/18/17 00:42 Dose: 600 mg Loratadine (Claritin -) 10 mg PO HS [facility] Last Admin: 12/17/17 21:47 Dose: 10 mg Losartan Potassium (Cozaar -) 100 mg PO DAILY [facility] Last Admin: 12/18/17 09:55 Dose: 100 mg - Objective Vital Signs: Vital Signs Temperature 97.8 F 12/18/17 10:09 Pulse Rate 68 12/18/17 10:09 Respiratory Rate 18 12/18/17 10:09 Blood Pressure 135/58 L 12/18/17 10:09 O2 Sat by Pulse Oximetry (%) 100 12/17/17 21:00 Elderly F C/O Left Knee Pian HEENT: Left Facial Droop, EOMI NECK: No JVD, No Bruit, CHEST: CTA B/L CVS; S1S2 R no m/g/r ABD: Obese non tender Bs + EXT: Left Knee Hematoma, swelling and Tenderness [employer]: Aox3, slurred speech, Left sided weakness. Labs: CBC, BMP 12/18/17 05:17 12/18/17 05:17 INR, PTT INR 1.05 (0.83-1.09) 12/16/17 10:40 - ....Imaging MRI: Report Reviewed (Rt Basal Ganglion Acute/Subacute infarct) Problem List - Problems (1) CVA (cerebral vascular accident) Assessment/Plan: Rt Basal Ganglion acute to sub acute infarct, optimize BP control, aggrenox, Lipitor 40 mg F/U OT PT evaluation. Code(s): I63.9 - CEREBRAL INFARCTION, UNSPECIFIED (2) HTN (hypertension) Assessment/Plan: BP at target cont current meds Code(s): I10 - ESSENTIAL (PRIMARY) HYPERTENSION (3) Dyslipidemia (high LDL; low HDL) Assessment/Plan: Lipitor 40 mg on [place] Code(s): E78.5 - HYPERLIPIDEMIA, UNSPECIFIED (4) Obesity (BMI 30-39.9) Assessment/Plan: Nutrition consult Code(s): E66.9 - OBESITY, UNSPECIFIED (5) Left knee injury Assessment/Plan: No fracture cold compresses pain control. Code(s): S89.92XA - UNSPECIFIED INJURY OF LEFT LOWER LEG, INITIAL ENCOUNTER
[2017-12-18] MEDS ORDERED: DOCUSATE SODIUM 100 MG CAPSULE (FP) PO ONE (12:15)
[2017-12-18 14:29] VITALS: BMI 39.4
[2017-12-18] MEDS: SODIUM CHLORIDE 1,000 ML IV SCH (21:30)
[2017-12-18] MEDS: ATENOLOL 50 MG TABLET (FP) PO SCH (21:32)
[2017-12-18] MEDS: LORATADINE 10 MG TABLET PO SCH (21:32)
[2017-12-18] MEDS: ATORVASTATIN CA 40 MG TABLET (FP) PO SCH (21:32)
[2017-12-18] MEDS: ALPRAZolam 0.25 MG TABLET PO PRN (21:40)
--- NOTE | 2017-12-18 21:52 | PN ---
Progress Note, Physician History of Present Illness: events noted and chart reviewed Alert awake at [facility] bed side No seizure or cardiac arrhythmia - Current Medication List Current Medications: Active Medications Acetaminophen (Tylenol -) 650 mg PO Q6H PRN PRN Reason: PAIN Alprazolam (Xanax -) 0.5 mg PO Q8H PRN PRN Reason: ANXIETY Last Admin: 12/18/17 21:40 Dose: 0.5 mg Atenolol (Tenormin -) 50 mg PO HS [facility] Last Admin: 12/18/17 21:32 Dose: 50 mg Atorvastatin Calcium (Lipitor -) 40 mg PO HS [facility] Last Admin: 12/18/17 21:32 Dose: 40 mg Dipyridamole/Aspirin (Aggrenox -) 1 combo PO BID [facility] Last Admin: 12/18/17 21:32 Dose: 1 combo Sodium Chloride (Normal Saline -) 1,000 mls @ 42 mls/hr IV ASDIR [facility] Last Admin: 12/18/17 21:30 Dose: 42 mls/hr Ibuprofen (Motrin -) 600 mg PO TID PRN PRN Reason: PAIN Last Admin: 12/18/17 00:42 Dose: 600 mg Loratadine (Claritin -) 10 mg PO HS [facility] Last Admin: 12/18/17 21:32 Dose: 10 mg Losartan Potassium (Cozaar -) 100 mg PO DAILY [facility] Last Admin: 12/18/17 09:55 Dose: 100 mg Polyethylene Glycol (Miralax (For Daily Use) -) 17 gm PO DAILY [facility] - Objective Vital Signs: Vital Signs Temperature 97.8 F 12/18/17 20:22 Pulse Rate 73 12/18/17 20:22 Respiratory Rate 20 12/18/17 21:00 Blood Pressure 140/76 12/18/17 20:22 O2 Sat by Pulse Oximetry (%) 96 12/18/17 21:00 Constitutional: Yes: Well Nourished Eyes: Yes: WNL ...Motor Strength: LUE (3), LLE (4) Labs: CBC, BMP 12/18/17 05:17 12/18/17 05:17 INR, PTT INR 1.05 (0.83-1.09) 12/16/17 10:40 Problem List - Problems (1) CVA (cerebral vascular accident) Assessment/Plan: 1. Neuro checks 2. Needs acute rehab 3. does not want to go to [place] until finish treatment 4. PT 5. DVT prophylaxis Stroke education nd weight loss Code(s): I63.9 - CEREBRAL INFARCTION, UNSPECIFIED
[2017-12-19 06:52] LABS: BASO % 0.7 % (0-2.0); EOS % 2.8 % (0-4.5); HEMATOCRIT 44.9 % (32.4-45.2); LYMPH % 21.9 % (8-40); MCH 30.6 pg (25.7-33.7); MCHC 33.3 g/dl (32.0-36.0); MEAN CELL VOLUME 91.8 fl (80-96); MEAN PLT VOLUME 7.8 fl (7.5-11.1); MONO % 8.7 % (3.8-10.2); NEUT % 65.9 % (42.8-82.8); PLATELET COUNT 262 K/MM3 (134-434); RDW 13.8 % (11.6-15.6); WHITE BLOOD COUNT 8.9 K/mm3 (4.0-10.0)
[2017-12-19 07:21] LABS: ANION GAP 7 MMOL/L (8-16); BLOOD UREA NITROGEN 10 mg/dL (7-18); CALCIUM 8.9 mg/dL (8.5-10.1); CHLORIDE 110 mmol/L (98-107); CO2 26 mmol/L (21-32); CREATININE 0.4 mg/dL (0.55-1.3); GLUCOSE,RANDOM 94 mg/dL (74-106); POTASSIUM 3.5 mmol/L (3.5-5.1); SODIUM 144 mmol/L (136-145)
[2017-12-19] MEDS: ACETAMINOPHEN 325 MG TABLET (FP) PO PRN ×3 (07:30→21:47)
[2017-12-19] MEDS: LOSARTAN POTASSIUM 50 MG TABLET (FP) PO SCH (09:47)
[2017-12-19] MEDS: ASPIRIN/DIPYRIDAMOLE 25 MG/200 MG CAPSULE (FP) PO SCH ×2 (09:47→21:35)
[2017-12-19] MEDS: POLYETHYLENE GLYCOL 3350 119 GM BTL PO SCH (09:47)
--- NOTE | 2017-12-19 09:53 | PN ---
Physical Exam: SUBJECTIVE: Patient seen and examined oob to recliner chair. Complaining of chronic back pain. OBJECTIVE: Vital Signs Period Temp Pulse Resp BP Sys/Ortega Pulse Ox Last 24 Hr 97.6 F-98.8 F 62-76 18-20 135-153/58-96 96 GENERAL: The patient is awake, alert, and fully oriented, in no acute distress. NEUROLOGICAL: Left facial droop; left arm and left leg 1/5 motor; speech is slow , mildly dysarthric HEAD: Normal with no signs of trauma. LUNGS: Breath sounds equal, clear to auscultation bilaterally, no wheezes, no crackles, no accessory muscle use. HEART: Regular rate and rhythm, S1, S2 ABDOMEN: Soft, nontender, nondistended EXTREMITIES: 2+ pulses, warm, well-perfused, no edema. PSYCH: Depressed affect Laboratory Results - last 24 hr 12/19/17 12/19/17 05:30 05:30 WBC 8.9 RBC 4.90 Hgb 15.0 Hct 44.9 MCV 91.8 MCH 30.6 MCHC 33.3 RDW 13.8 Plt Count 262 MPV 7.8 Absolute Neuts (auto) 5.8 Neutrophils % 65.9 Lymphocytes % 21.9 Monocytes % 8.7 Eosinophils % 2.8 D Basophils % 0.7 Nucleated RBC % 0 Sodium 144 Potassium 3.5 Chloride 110 H Carbon Dioxide 26 Anion Gap 7 L BUN 10 Creatinine 0.4 L Creat Clearance w eGFR > 60 Random Glucose 94 Calcium 8.9 Active Medications Generic Name Dose Route Start Last Admin Trade Name Freq PRN Reason Stop Dose Admin Acetaminophen 650 mg 12/18/17 15:10 12/19/17 07:30 Tylenol - PO 650 mg Q6H PRN Administration PAIN Alprazolam 0.5 mg 12/17/17 12:02 12/18/17 21:40 Xanax - PO 0.5 mg Q8H PRN Administration ANXIETY Atenolol 50 mg 12/16/17 22:00 12/18/17 21:32 Tenormin - PO 50 mg HS MARTIN Administration Atorvastatin Calcium 40 mg 12/17/17 22:00 12/18/17 21:32 Lipitor - PO 40 mg HS MARTIN Administration Dipyridamole/Aspirin 1 combo 12/16/17 22:00 10/15/18 09:47 Aggrenox - PO 1 combo BID MARTIN Administration Sodium Chloride 1,000 mls @ 42 mls/hr 12/16/17 10:45 12/18/17 21:30 Normal Saline - IV 42 mls/hr ASDIR MARTIN Administration Ibuprofen 600 mg 12/16/17 14:47 12/18/17 00:42 Motrin - PO 600 mg TID PRN Administration PAIN Loratadine 10 mg 12/16/17 22:00 12/18/17 21:32 Claritin - PO 10 mg HS MARTIN Administration Losartan Potassium 100 mg 12/17/17 10:00 12/19/17 09:47 Cozaar - PO 100 mg DAILY MARTIN Administration Polyethylene Glycol 17 gm 12/19/17 10:00 12/19/17 09:47 Miralax (For Daily Use) - PO 17 gm DAILY MARTIN Administration ASSESSMENT/PLAN 72 year-old female with a PMH significant for HTN, HLD, CAD, and breast cancer s /p right breast resection, admitted for CVA. CVA --12/16 MRI brain: acute/subacute nonhemorrhagic small vessel infarct right basal ganglia --left hemiplegia --BP at goal range --continue Aggrenox --stop Motrin --stop alprazolam, does not tolerate causes nightmares Hypertension --BP stable and in goal range --continue losartan, atenolol Hyperlipidemia --continue Lipitor Breast cancer --stable Nausea --episode of nausea while eating dinner --Zofran PRN FEN Fluids: PO intake adequate Electrolytes: replete as indicated Nutrition: dysphagia whole, nectar thick DVT prophylaxis: not on chemical prophylaxis; TEDs Dispo: continues to require inpatient care. Awaiting rehab placement. Full code. Visit type - Emergency Visit Emergency Visit: Yes ED Registration Date: 12/19/17 Care time: The patient presented to the Emergency Department on the above date and was hospitalized for further evaluation of their emergent condition. - New Patient This patient is new to me today: Yes Date on this admission: 12/19/17 - Critical Care Critical Care patient: No
--- NOTE | 2017-12-19 11:56 | PN ---
Progress Note, BINDERY CHIEF - Note Progress Note: MRI confirmed M2 Right MCA CVA Selected Entries 12/18/17 12/18/17 12/18/17 02:00 10:09 14:00 Breakfast 25% Lunch 0 Supper Temperature 97.7 F 97.8 F 97.6 F 12/18/17 12/18/17 12/18/17 17:00 19:46 22:00 Breakfast Lunch Supper 50% Temperature 98.8 F 97.8 F 12/19/17 12/19/17 12/19/17 02:00 06:00 10:00 Breakfast Lunch Supper Temperature 97.8 F 97.6 F 98.4 F Laboratory Tests 12/19/17 05:30 WBC 8.9 Pt is tolerating Dys whole diet/nectar thick liquid diet. When reassessed, she has a responsive cough with thin liquid intermittently. She reports intermittent appetite and nausea. Tongue is coated. REC: good mouth care TID. r/o thrush after mouth care. Oral motor/swallowing exercises and speech drills given for self practice b/n sessions. Educated pt and on speaking slowly and clearly, exaggerating pronunciation. Excellent candidate for acute rehab placement.
[2017-12-19] MEDS: traMADol HCL 50 MG TABLET PO PRN (17:26)
[2017-12-19] MEDS ORDERED: ONDANSETRON 4 MG/2 ML VIAL IVPUSH PRN (17:54)
[2017-12-19] MEDS ORDERED: ONDANSETRON 4 MG/2 ML VIAL ONE (17:56)
[2017-12-19] MEDS: ATORVASTATIN CA 40 MG TABLET (FP) PO SCH (21:35)
[2017-12-19] MEDS: LORATADINE 10 MG TABLET PO SCH (21:36)
[2017-12-19] MEDS: ATENOLOL 50 MG TABLET (FP) PO SCH (21:36)
[2017-12-20] MEDS: traMADol HCL 50 MG TABLET PO PRN ×2 (07:18→12:27)
[2017-12-20] MEDS ORDERED: MAG HYDROX/AL HYDROX/SIMETH 30 ML UNIT-DOSE CUP PO ONE (07:58)
[2017-12-20] MEDS: POLYETHYLENE GLYCOL 3350 119 GM BTL PO SCH (10:01)
[2017-12-20] MEDS: LOSARTAN POTASSIUM 50 MG TABLET (FP) PO SCH (10:01)
[2017-12-20] MEDS: ASPIRIN/DIPYRIDAMOLE 25 MG/200 MG CAPSULE (FP) PO SCH (10:01)
--- NOTE | 2017-12-20 11:41 | DS ---
Physical Exam: SUBJECTIVE: Patient seen and examined at the bedside. Denies any pain or malaise She is in agreement to go to [place] today. OBJECTIVE: for discharge to [place] Vital Signs Period Temp Pulse Resp BP Sys/Ortega Pulse Ox Last 24 Hr 98 F-98.3 F 66-88 20-20 122-157/69-84 97 PHYSICAL EXAM GENERAL: The patient is awake, alert, and fully oriented, in no acute distress. NEUROLOGICAL: Left facial droop persists; left arm flaccid, left sided weakness. speech is slightly slurred. HEAD: Normal with no signs of trauma. LUNGS: Breath sounds equal, clear to auscultation bilaterally, no wheezes, no crackles, no accessory muscle use. HEART: Regular rate and rhythm. NSR on monitor tech. ABDOMEN: Soft, nontender, nondistended + bowel sounds EXTREMITIES: no edema. PSYCH: normal mood and affect. LABS HOSPITAL COURSE: Date of Admission:12/19/17 Date of Discharge: 12/20/17 Patient is a 72 year old female admitted on 12/19/2017 for CVA. She will be discharged today 12/20/2017 to [facility]. Her past medical history includes HTN, HLD, CAD, and breast cancer. Imagin/12 MRI brain: acute/subacute nonhemorrhagic small vessel infarct right basal ganglia Neuro: Acute CVA/left sided weakness/hemiplegia. MRI shows acute/subacute non hemorrhagic small vessel right basal ganglia infart. - On Aggrenox - speech and swallow completed w recommendations on dysphagia whole diet. Patient to continue diet rehab at [place]. Aspiration precautions. - Monitor BP s/p stroke, goal BP <120 systolic: on Losartan, atenolol - Hyperlipidemia, on Lipitor to continue as an outpatient - BMI @ 107.5, recommend nutritional consult as outpatient for weight loss - risk factors: htn, morbid obesity, hyperlipidemia Breast cancer - outpatient follow up. disposition: stable for discharge to [facility]. Minutes to complete discharge: 60 Discharge Summary Reason For Visit: CEREBROVASCULAR ACCIDENT Current Active Problems CVA (cerebral vascular accident) (Acute) Dyslipidemia (high LDL; low HDL) (Acute) HTN (hypertension) (Acute) Left knee injury (Acute) Obesity (BMI 30-39.9) (Acute) Condition: Guarded - Instructions Diet, Activity, Other Instructions: Mrs Pielow: You were admitted on 12/19/2017 for an acute cerebrovascular accident or stroke. Here is what we recommend: Acute Stroke with left sided weakness: You will be discharged for physical therapy. Please follow up with Dr. Emmanuel within 1-2 weeks after discharge. Physical therapy: You will be discharged to [place] for physical therapy. Continue taking the Aggrenox as ordered. Hypertension: continue taking the Losartan, atenolol as prescribed. Hyperlipidemia: continue Lipitor Diet: Dysphagia whole diet/nectar thick liquid diet. Maintain aspiration precautions Patient reports intermittent appetite and nausea. Tongue is coated. REC: good mouth care TID. r/o thrush after mouth care. continue: oral motor/swallowing exercises and speech drills Thank you for allowing us to care for you. Referrals: Glen Emmanuel MD [Staff Physician] - 1 Week Disposition: RESIDENTIAL FACILITY - Home Medications Comprehensive Discharge Medication List: Ambulatory Orders Aspirin [Aspirin EC] 81 mg PO DAILY 12/16/17 Atenolol [Tenormin -] 50 mg PO HS 12/16/17 Ibuprofen [Motrin -] 600 mg PO TID PRN 12/16/17 Irbesartan 300 mg PO DAILY 12/16/17 Loratadine 10 mg PO HS 12/16/17 Pravastatin Sodium 20 mg PO HS 12/16/17 This patient is new to me today: Yes Date on this admission: 12/20/17 Emergency Visit: Yes ED Registration Date: 12/19/17 Care time: The patient presented to the Emergency Department on the above date and was hospitalized for further evaluation of their emergent condition. Critical Care patient: No - Discharge Referral Referred to [facility] No
[2017-12-20 13:41] VITALS: BP 142/78; PULSE 70; TEMP 97.5
== END 2017-12-20 14:48 | DRG 65 ==
LOC: JER 10:26 → JERBED 14:31 → J4W 12-17 00:54 → OBSVTOIN 12-19 12:05
PROVIDERS: ADMIT Internal Medicine; ATTEND Nurse Practitioner Family
DX: I63.9 Cerebral infarction, unspecified (principal); G81.94 Hemiplegia, unspecified affecting left nondominant side; R29.810 Facial weakness; R47.81 Slurred speech; S80.212A Abrasion, left knee, initial encounter; W18.39XA Other fall on same level, initial encounter; Y93.89 Activity, other specified; Y92.89 Other specified places as the place of occurrence of the external cause; Y99.8 Other external cause status; I10 Essential (primary) hypertension; E78.5 Hyperlipidemia, unspecified; I25.10 Atherosclerotic heart disease of native coronary artery without angina pectoris; Z85.3 Personal history of malignant neoplasm of breast; E66.9 Obesity, unspecified; Z68.39 Body mass index [BMI] 39.0-39.9, adult; R47.1 Dysarthria and anarthria; R11.0 Nausea
CPT/HCPCS: 36415; 70450-TC; 70551-TC; 71045-TC-FY; 73030-TC-RT-FY; 73560-TC-LT-FY; 80048; 80053; 81003; 82465; 82550; 82607; 83036; 83718; 83721; 84443; 84478; 84484; 85025; 85610; 93005; 93010; 93306-TC; 93880-TC; 93970-TC; 97161-GP; 99285-25; G0378; J7030